=== PATIENT | female | born 1970 | race Two or more races ===

== ENCOUNTER 2020-08-01 17:49 | Emergency (ER) | payer OTHER ==
[~2020-08-01] VITALS: Ht 142.2 cm; Wt 54.4 kg
[2020-08-01 19:36] VITALS: BP 120/73
[2020-08-01] MEDS ORDERED: ACETAMINOPHEN 500 MG TAB PO ONE (20:00)
== END 2020-08-01 20:50 | disposition home or self-care (01) ==
LOC: ER 17:49
DX: S29.011A Strain of muscle and tendon of front wall of thorax, initial encounter (principal); S00.83XA Contusion of other part of head, initial encounter; R51.9 Headache, unspecified; V49.59XA Passenger injured in collision with other motor vehicles in traffic accident, initial encounter; Y93.89 Activity, other specified; Y92.488 Other paved roadways as the place of occurrence of the external cause; Y99.8 Other external cause status
CPT/HCPCS: 70450; 71101